=== PATIENT | male | born 1950 | race Caucasian/White ===

== ENCOUNTER 2018-09-04 19:11 | Emergency (ER) | payer OTHER ==
[~2018-09-04] VITALS: Ht 170.2 cm; Wt 68.0 kg
[~2018-09-04 19:11] MED LIST: IBUPROFEN 800800 MG PO; NORCO 5-325 TA1 EACH PO; RAPAFLO8 MG PO
[2018-09-04] MEDS ORDERED: AVODART0.5 MG PO (19:24)
[2018-09-04] MEDS ORDERED: MOBIC7.5 MG PO (21:28)
[2018-09-04] MEDS ORDERED: TIZANIDINE HCL4 MG PO (21:28)
[2018-09-04 21:42] VITALS: BP 140/85
== END 2018-09-04 21:44 | disposition home or self-care (01) ==
LOC: ER 19:11
DX: S16.1XXA Strain of muscle, fascia and tendon at neck level, initial encounter (principal); S39.012A Strain of muscle, fascia and tendon of lower back, initial encounter; S80.211A Abrasion, right knee, initial encounter; Z88.5 Allergy status to narcotic agent; Z88.1 Allergy status to other antibiotic agents; V89.2XXA Person injured in unspecified motor-vehicle accident, traffic, initial encounter; Y93.89 Activity, other specified; Y92.89 Other specified places as the place of occurrence of the external cause; Y99.8 Other external cause status